=== PATIENT | female | born 1950 | race Caucasian/White ===

== ENCOUNTER 2024-08-24 22:34 | Inpatient (IN) | payer MEDICARE, OTHER ==
[~2024-08-24] VITALS: Ht 162.6 cm; Wt 96.2 kg
[2024-08-24 23:24] LABS: BASOPHILS % (AUTO) 0.4 % (0.0-2.0); EOSINOPHILS # (AUTO) 0.1 K/uL (0.0-0.7); EOSINOPHILS % (AUTO) 1.2 % (0.0-6.0); HEMATOCRIT 38 % (33-45); HEMOGLOBIN 12.9 g/dL (11.5-14.8); LYMPHOCYTES # (AUTO) 1.3 K/uL (0.8-4.8); LYMPHOCYTES % (AUTO) 17.6 % (20.0-44.0); MEAN CORPUSCULAR HEMOGLOBIN 28 PG (26.0-33.0); MEAN CORPUSCULAR HGB CONC 34 g/dl (31.0-36.0); MEAN CORPUSCULAR VOLUME 82 fL (82-100); MONOCYTES # (AUTO) 0.6 K/uL (0.1-1.30); MONOCYTES % (AUTO) 8.3 % (2.0-12.0); NEUTROPHILS # (AUTO) 5.3 K/uL (1.8-8.9); NEUTROPHILS % (AUTO) 72.5 % (43.0-81.0); PLATELET COUNT (AUTO) 181 K/uL (150-450); RED BLOOD CELL COUNT(AUTO) 4.63 MIL/uL (4.0-5.2); RED CELL DISTRIBUTION WIDTH 15.3 % (11.5-15.0); WHITE BLOOD COUNT (AUTO) 7.3 K/uL (4.3-11.0)
[2024-08-24 23:40] LABS: CALCIUM, SERUM 9.1 mg/dL (8.5-10.1); CARBON DIOXIDE 28 mmol/L (21-32); CHLORIDE 104 mmol/L (98-107); CREATININE 1.1 mg/dL (0.6-1.3); GLUCOSE 137 mg/dL (74-106); POTASSIUM 3.4 mmol/L (3.5-5.1); SODIUM SERUM 141 mmol/L (136-145); UREA NITROGEN, BLOOD 23 mg/dL (7-18)
[2024-08-24 23:49] LABS: ALANINE AMINOTRANSFERASE 22 U/L (12-78); ALBUMIN 3.6 g/dL (3.4-5.0); ALCOHOL, BLOOD < 3 mg/dL (0-10); ALKALINE PHOSPHATASE 102 U/L (46-116); ASPARTATE AMINOTRANSFERASE 14 U/L (15-37); BILIRUBIN,DIRECT 0.1 mg/dL (0.0-0.2); BILIRUBIN,TOTAL 0.4 mg/dL (0.2-1.0); TOTAL PROTEIN, SERUM 7.1 g/dL (6.4-8.2)
[2024-08-24 23:52] LABS: ACETAMINOPHEN <10 ug/ml (10-30); SALICYLATE 1.5 mg/dL (2.8-20.0)
[2024-08-25] VITALS: BP 134/62; TEMP 98; O2SAT 99
[2024-08-25] MEDS ORDERED: LORAZEPAM INJ 2 MG/ML VIAL ONE
[2024-08-25] MEDS: LORAZEPAM INJ 2 MG/ML VIAL IM ONE (00:04)
[2024-08-25 01:53] LABS: APPEARANCE,URINE CLEAR (CLEAR); BILIRUBIN,URINE NEGATIVE (NEGATIVE); BLOOD, URINE NEGATIVE Ery/uL (NEGATIVE); COLOR,URINE YELLOW (YELLOW); KETONES,URINE NEGATIVE (NEGATIVE); LEUKOCYTE ESTERASE ,URINE NEGATIVE (NEGATIVE); NITRITE, URINE NEGATIVE (NEGATIVE); PROTEIN,URINE NEGATIVE (NEGATIVE); UGLUCOSE NEGATIVE (NEGATIVE); UROBILINOGEN,URINE 0.2 EU/dL (0.2)
[2024-08-25 02:10] LABS: AMPHETAMINE, URINE NEGATIVE (NEGATIVE); BARBITURATE, URINE NEGATIVE (NEGATIVE); BENZODIAZEPINE, URINE NEGATIVE (NEGATIVE); CANNABINOID, URINE NEGATIVE (NEGATIVE); COCCAINE, URINE NEGATIVE (NEGATIVE); OPIATE, URINE NEGATIVE (NEGATIVE); PHENCYCLIDINE SCREEN,URINE NEGATIVE (NEGATIVE)
[2024-08-25] MEDS ORDERED: MELA3TAB41 PO (07:45)
[2024-08-25] MEDS ORDERED: PALI156D IM (07:45)
[2024-08-25] MEDS ORDERED: VALP250S4 PO (07:45)
[2024-08-25] MEDS ORDERED: ACET-868 PO (07:45)
[2024-08-25] MEDS ORDERED: MAGN400O6 PO (07:45)
[2024-08-25] MEDS ORDERED: ASPI-1169 PO (07:45)
[2024-08-25] MEDS ORDERED: TAMO20TA4 PO (07:45)
[2024-08-25] MEDS ORDERED: RISP2TAB85 PO (07:45)
[2024-08-25] MEDS ORDERED: PANT40TA2 PO (07:45)
[2024-08-25] MEDS ORDERED: ATOR10TA PO (07:45)
[2024-08-25] MEDS ORDERED: MULT-594 PO (07:45)
[2024-08-25] MEDS ORDERED: MAGNESIUM HYDROXIDE 30 ML UDC PO PRN ×2 (09:30→10:00)
[2024-08-25] MEDS ORDERED: ACETAMINOPHEN 325 MG TABLET PO PRN ×2 (09:30→10:00)
[2024-08-25] MEDS ORDERED: ZOLPIDEM TARTRATE 5 MG TABLET PO PRN (10:00)
[2024-08-25] MEDS ORDERED: MAG HYDROX/AL HYDROX/SIMETH 30 ML UDC PO PRN (10:00)
[2024-08-25] MEDS: BLOOD SUGAR DIAGNOSTIC 1 EACH STRIP IN ONE (10:10)
[2024-08-25] MEDS: TAMOXIFEN CITRATE 10 MG TABLET PO SCH (10:31)
[2024-08-25] MEDS: DIVALPROEX SODIUM 250 MG TABLET.DR PO SCH ×2 (12:30→22:06)
[2024-08-25] MEDS: risperiDONE 1 MG TABLET PO SCH (12:30)
[2024-08-25] MEDS: ATORVASTATIN 10 MG TABLET PO SCH (22:05)
[2024-08-26] MEDS: PANTOPRAZOLE 40 MG TABLET.DR PO SCH (08:49)
[2024-08-26] MEDS: MULTIVITAMINS,THERAGRAN 1 UDTAB TABLET PO SCH (08:49)
[2024-08-26] MEDS: ASPIRIN 81 MG TAB.CHEW PO SCH (08:49)
[2024-08-26] MEDS: LORAZEPAM 0.5 MG TABLET PO PRN (11:59)
[2024-08-27] MEDS: OLANZAPINE 10 MG VIAL IM ONE (10:13)
[2024-08-28] MEDS: OLANZAPINE 10 MG VIAL IM ONE (08:30)
[2024-08-29] MEDS: diphenhydrAMINE HCL 50 MG/ML VIAL IM PRN ×2 (16:19→21:39)
[2024-08-29] MEDS: HALOPERIDOL LACTATE INJ 5 MG/ML VIAL IM PRN ×2 (16:19→21:39)
[2024-08-30] MEDS ORDERED: HALOPERIDOL LACTATE INJ 5 MG/ML VIAL IM PRN (10:30)
[2024-08-30] MEDS ORDERED: diphenhydrAMINE HCL 50 MG/ML VIAL IM PRN (10:30)
[2024-08-30] MEDS: risperiDONE 1 MG TABLET PO SCH (12:28)
[2024-08-31] MEDS: PALIPERIDONE PALMITATE 234 MG/1.5 ML SYRINGE IM ONE (10:50)
[2024-09-04] MEDS: BENZTROPINE MESYLATE (1 MG) 1 MG TABLET PO SCH (10:52)
[2024-09-04] MEDS: HALOPERIDOL 5 MG TABLET PO SCH (10:52)
[2024-09-07] MEDS: PALIPERIDONE PALMITATE 156 MG/ML SYRINGE IM SCH (13:57)
[2024-09-07] MEDS: HALOPERIDOL 5 MG TABLET PO SCH (21:39)
[2024-09-07] MEDS: BENZTROPINE MESYLATE (1 MG) 1 MG TABLET PO SCH (21:39)
== END 2024-09-08 14:15 | DRG 885 ==
LOC: ER 22:51 → GPS 08-25 07:15
PROVIDERS: ADMIT Psychiatry & Neurology Psychosomatic Medicine; ATTEND Nurse Practitioner Acute Care
DX: F25.0 Schizoaffective disorder, bipolar type (principal); F03.93 Unspecified dementia, unspecified severity, with mood disturbance; K21.9 Gastro-esophageal reflux disease without esophagitis; E11.9 Type 2 diabetes mellitus without complications; E78.5 Hyperlipidemia, unspecified; I10 Essential (primary) hypertension; J44.9 Chronic obstructive pulmonary disease, unspecified; M19.90 Unspecified osteoarthritis, unspecified site; Z88.0 Allergy status to penicillin; K76.0 Fatty (change of) liver, not elsewhere classified; E66.01 Morbid (severe) obesity due to excess calories; Z79.60 Long term (current) use of unspecified immunomodulators and immunosuppressants; F03.90 Unspecified dementia, unspecified severity, without behavioral disturbance, psychotic disturbance, mood disturbance, and anxiety; Z73.6 Limitation of activities due to disability; F39 Unspecified mood [affective] disorder; Z68.36 Body mass index [BMI] 36.0-36.9, adult; Z79.810 Long term (current) use of selective estrogen receptor modulators (SERMs); Z20.822 Contact with and (suspected) exposure to COVID-19; C50.919 Malignant neoplasm of unspecified site of unspecified female breast
CPT/HCPCS: 36415; 80048-TC; 80076-TC; 85025-TC; 97112-TC; 97116-TC; 97530-TC; G0480; J1200; J1630; J2060; J2426; J3490